=== PATIENT | female | born 1995 | race Two or more races ===

== ENCOUNTER 2019-04-17 14:36 | Emergency (ER) | payer SELFPAY ==
[~2019-04-17] VITALS: Ht 157.5 cm; Wt 113.4 kg
[2019-04-17 15:47] LABS: Urine WBC None Seen /hpf (0 - 5)
[2019-04-17 15:51] LABS: Urine Bacteria NONE SEEN /hpf (None Seen); Urine Blood 2+ /uL (Negative)
[2019-04-17 17:07] VITALS: BP 130/85
== END 2019-04-17 17:38 | disposition home or self-care (01) ==
LOC: ER 14:36
DX: N39.0 Urinary tract infection, site not specified (principal)
CPT/HCPCS: 81001